=== PATIENT | female | born 2000 | race Caucasian/White ===

== ENCOUNTER 2022-06-06 23:30 | Emergency (ER) | payer OTHER ==
[2022-06-07 00:18] LABS: HEMOGLOBIN 14.4 gm/dl (12.3-15.3); RED BLOOD COUNT 4.57 M/UL (4.00-5.10); WHITE BLOOD COUNT 7.7 K/UL (4.5-11.0)
[2022-06-07 00:40] LABS: BUN/CREATININE RATIO 11 (0-10)
== END 2022-06-07 03:25 | disposition left against medical advice (07) ==
LOC: ER1 23:30
PROVIDERS: Family Medicine
DX: U07.1 COVID-19 (principal); R10.30 Lower abdominal pain, unspecified
CPT/HCPCS: 80053; 81001; 83690; 84703; 85025; 87086; 99281; U0002